=== PATIENT | female | born 1950 | race Caucasian/White ===

== ENCOUNTER 2017-10-05 14:05 | Inpatient (IN) | payer MEDICARE ==
[2017-10-05] VITALS (7 sets, daily range): BP systolic 123–166; BP diastolic 67–89; PULSE 77–104; RESP 18–23; TEMP 99.6–101.7; O2SAT 91–96
[~2017-10-05] VITALS: Ht 157.5 cm; Wt 132.2 kg
[2017-10-05] MEDS ORDERED: LEVOFLOXACIN 750 MG PREMIX INJ 150 ML IV STA (14:28)
--- NOTE | 2017-10-05 14:37 | PD ---
HPI Chief Complaint: Respiratory Symptoms Time Seen by Provider: 14:22 Travel History International Travel<30 days: No Contact w/Intl Traveler<30days: No Traveled to known affect area: No History of Present Illness HPI This is a 66-year-old female who has a history of asthma, congestive heart failure and an artificial valve who presents to the emergency department with increasing shortness of breath over the past 4-5 days, constant, severe associated with brown and yellow sputum and fevers. She was seen at an urgent care prior to coming here and was told she had pneumonia on chest x-ray. She did recently drive here from [place] 5 days ago. She does not use oxygen at home but uses a CPAP machine to sleep at night. She took 1 g of Tylenol 2 hours prior to arriving in the emergency department. PFSH Past Medical History Hx Anticoagulant Therapy: Yes (asa 81mg) Cardiovascular Problems: Yes (htn on meds, pacemaker, hx vtach, heart block) Respiratory: Yes (copd, chf) ?: Not Social History Tobacco Use: No Allergies-Medications (Allergen,Severity, Reaction): Coded Allergies: cefaclor (Verified Allergy, Severe, rash, vomiting, 10/05/17) codeine (Verified Allergy, Intermediate, n/v, 10/05/17) verapamil (Verified Allergy, Intermediate, rash, 10/05/17) Reported Meds & Prescriptions Reported Meds & Active Scripts Active Reported Symbicort Inh (Budesonide/Formoterol Fumarate) 160-4.5 Mcg/Act Aero 2 Puff INH Q12HR Spiriva Handihaler (Tiotropium Inh) 18 Mcg Cap 18 Mcg INH DAILY 1 capsule = 18 mcg Potassium Chloride ER (Potassium Chloride) 10 Meq Cap 10 Meq PO DAILY Paroxetine (Paroxetine HCl) 40 Mg Tab 40 Mg PO DAILY Oxycodone-Acetaminophen 10-325 mg Tab 1 Tab PO Q6H PRN Montelukast (Montelukast Sodium) 10 Mg Tab 10 Mg PO HS Lisinopril 2.5 Mg Tab 2.5 Mg PO DAILY Levothyroxine (Levothyroxine Sodium) 125 Mcg Tab 125 Mcg PO DAILY Isosorbide Mononitrate ER (Isosorbide Mononitrate) 30 Mg Saji 30 Mg PO DAILY Furosemide 40 Mg Tab 40 Mg PO BID Vitamin B-12 (Cyanocobalamin) 1,000 Mcg Tab 1,000 Mcg PO DAILY Clonazepam 1 Mg Tab 1 Mg PO TID Carvedilol 6.25 Mg Tab 6.25 Mg PO BID Aspirin 81 Mg Chew 81 Mg CHEW DAILY Ventolin Hfa 18 GM Inh (Albuterol Sulfate) 90 Mcg/Act Aer 2 Puff INH Q4-6H PRN Review of Systems Except as stated in HPI: all other systems reviewed are Neg Physical Exam Narrative GENERAL: Ill-appearing, morbidly obese SKIN: Focused skin assessment warm and dry. HEAD: Atraumatic. Normocephalic. EYES: Pupils equal and round. No injection or drainage. ENT: Moist mucous membranes NECK: Trachea midline. CARDIOVASCULAR: Harsh systolic murmur RESPIRATORY: Rales in the bilateral lung bases, tachypnea with accessory muscle use GASTROINTESTINAL: Abdomen soft, non-tender, nondistended. MUSCULOSKELETAL: No obvious deformities. NEUROLOGICAL: Awake and alert. No obvious cranial nerve deficits. Moving all extremities. PSYCHIATRIC: Appropriate mood and affect; insight and judgment normal. Data Data Last Documented VS Vital Signs Date Time Temp Pulse Resp B/P (MAP) Pulse Ox O2 Delivery O2 Flow Rate FiO2 10/05/17 15:27 80 18 141/80 (100) 93 Nasal Cannula 2.00 10/05/17 14:15 101.7 Orders Orders Sepsis Workup Initiated (10/05/17 ) Complete Blood Count With Diff (10/05/17 14:28) Comprehensive Metabolic Panel (10/05/17 14:28) Prothrombin Time / Inr (Pt) (10/05/17 14:28) Act Partial Throm Time (Ptt) (10/05/17 14:28) Lactic Acid Sepsis Protocol (10/05/17 14:28) Urinalysis - C+S If Indicated (10/05/17 14:28) Blood Culture (10/05/17 14:28) Sputum Culture And Gram Stain (10/05/17 14:28) Blood Glucose (10/05/17 14:28) Ecg Monitoring (10/05/17 14:28) Iv Access Insert/Monitor (10/05/17 14:28) Oximetry (10/05/17 14:28) Oxygen Administration (10/05/17 14:28) Levofloxacin 750 Mg Premix Inj (Levaquin (10/05/17 14:28) B-Type Natriuretic Peptide (10/05/17 14:34) Methylprednisolone So Succ Inj (Solumedr (10/05/17 14:45) Albuterol-Ipratropium Neb (Duoneb Neb) (10/05/17 14:45) Arterial Blood Gas (Abg) (10/05/17 ) Admit Order (Ed Use Only) (10/05/17 16:09) Influenzae A/B Antigen (10/05/17 16:09) Labs Laboratory Tests Test 10/05/17 14:43 10/05/17 14:48 10/05/17 15:48 White Blood Count 18.2 TH/MM3 Red Blood Count 4.87 MIL/MM3 Hemoglobin 14.5 GM/DL Hematocrit 42.9 % Mean Corpuscular Volume 88.0 FL Mean Corpuscular Hemoglobin 29.7 PG Mean Corpuscular Hemoglobin Concent 33.8 % Red Cell Distribution Width 13.1 % Platelet Count 401 TH/MM3 Mean Platelet Volume 8.0 FL Neutrophils (%) (Auto) 75.5 % Lymphocytes (%) (Auto) 16.6 % Monocytes (%) (Auto) 6.4 % Eosinophils (%) (Auto) 0.7 % Basophils (%) (Auto) 0.8 % Neutrophils # (Auto) 13.8 TH/MM3 Lymphocytes # (Auto) 3.0 TH/MM3 Monocytes # (Auto) 1.2 TH/MM3 Eosinophils # (Auto) 0.1 TH/MM3 Basophils # (Auto) 0.1 TH/MM3 CBC Comment DIFF FINAL Differential Comment Prothrombin Time 10.4 SEC Prothromb Time International Ratio 1.0 RATIO Activated Partial Thromboplast Time 25.5 SEC Blood Urea Nitrogen 14 MG/DL Creatinine 0.93 MG/DL Random Glucose 91 MG/DL Total Protein 7.5 GM/DL Albumin 3.5 GM/DL Calcium Level 8.7 MG/DL Alkaline Phosphatase 134 U/L Aspartate Amino Transf (AST/SGOT) 28 U/L Alanine Aminotransferase (ALT/SGPT) 25 U/L Total Bilirubin 0.2 MG/DL Sodium Level 139 MEQ/L Potassium Level 3.4 MEQ/L Chloride Level 103 MEQ/L Carbon Dioxide Level 26.6 MEQ/L Anion Gap 9 MEQ/L Estimat Glomerular Filtration Rate 60 ML/MIN B-Type Natriuretic Peptide 70 PG/ML Lactic Acid Level 1.7 mmol/L Urine Color YELLOW Urine Turbidity CLEAR Urine pH 7.0 Urine Specific Joaquin LESS/EQUAL 1.005 Urine Protein NEG mg/dL Urine Glucose (UA) NEG mg/dL Urine Ketones NEG mg/dL Urine Occult Blood NEG Urine Nitrite NEG Urine Bilirubin NEG Urine Urobilinogen 0.2 MG/DL Urine Leukocyte Esterase NEG Urine WBC 0-2 /hpf Urine Squamous Epithelial Cells 0-5 /hpf Urine Mucus OCC /lpf Microscopic Urinalysis Comment CATH-CULT NOT IND MDM Medical Decision Making Medical Screen Exam Complete: Yes Emergency Medical Condition: Yes Interpretation(s) Fever, normotensive Leukocytosis 75% neutrophils Mild hypokalemia Lactic acid is normal BNP is normal Urinalysis is negative for infection Chest x-ray from outside hospital demonstrates a right sided pneumonia Differential Diagnosis COPD exacerbation, pneumonia, sepsis, pleural effusion, congestive heart failure Narrative Course This is a 66-year-old female who presents to the emergency department with cough shortness of breath and fever. She has a history of COPD and congestive heart failure. She is placed on a monitor and IV was established. She was found to be hypoxic and is not on oxygen at home. Labs demonstrate a leukocytosis. Chest x-ray from outside urgent care demonstrates pneumonia. Patient was given IV steroids, bronchodilators and IV antibiotics and cultures were obtained. Lactic acid was normal. Patient will be admitted in the setting of sepsis and pneumonia. Given her recent travel history I considered pulmonary embolism but given the presence of consolidation on chest x-ray, fever, leukocytosis and symptoms I think pneumonia is more likely explanation for her symptoms. Physician Communication Physician Communication Discussed with Dr. Barraza Diagnosis Primary Impression: Pneumonia Qualified Codes: J18.9 - Pneumonia, unspecified organism Additional Impression: Sepsis Qualified Codes: A41.9 - Sepsis, unspecified organism Admitting Information Admitting Physician Requests: it Danitza De Oliveira MD Oct 05, 2017 14:37
[2017-10-05] MEDS: RESP: ALBUTEROL 2.5 MG/IPRATROPIUM 0.5 MG NEB (SCH) INH ×3 (14:42→19:25)
[2017-10-05] MEDS ORDERED: methylPREDNISolone SOD SUCC 125 MG/2 ML VIAL IV PUSH ONE (14:45)
[2017-10-05 15:12] LABS: AUTOMATED NEUTROPHIL # 13.8 TH/MM3 (1.8-7.7); BASOPHIL # 0.1 TH/MM3 (0-0.2); BASOPHIL % 0.8 % (0.0-2.0); EOSINOPHIL # 0.1 TH/MM3 (0-0.4); EOSINOPHIL % 0.7 % (0.0-4.0); HEMATOCRIT 42.9 % (35.0-46.0); HEMOGLOBIN 14.5 GM/DL (11.6-15.3); LYMPH % 16.6 % (9.0-44.0); MEAN CORPUSCULAR HEMOGLOBIN 29.7 PG (27.0-34.0); MEAN CORPUSCULAR HGB CONC 33.8 % (32.0-36.0); MONO % 6.4 % (0.0-8.0); MONOCYTE # 1.2 TH/MM3 (0-0.9); NEUT % 75.5 % (16.0-70.0); PLATELET COUNT 401 TH/MM3 (150-450); RED BLOOD COUNT 4.87 MIL/MM3 (4.00-5.30); RED CELL DISTRIBUTION WIDTH 13.1 % (11.6-17.2); WHITE BLOOD COUNT 18.2 TH/MM3 (4.0-11.0)
[2017-10-05 15:24] LABS: CHLORIDE 103 MEQ/L (98-107); SODIUM (NA) 139 MEQ/L (136-145)
[2017-10-05] MEDS ORDERED: MONT10TA4 PO (15:26)
[2017-10-05] MEDS ORDERED: CARV6.252 PO (15:26)
[2017-10-05] MEDS ORDERED: SYMB160A INH (15:26)
[2017-10-05] MEDS ORDERED: PARO40TA2 PO (15:26)
[2017-10-05] MEDS ORDERED: VITA10002 PO (15:26)
[2017-10-05] MEDS ORDERED: POTA10CA PO (15:26)
[2017-10-05] MEDS ORDERED: SPIRCAP INH (15:26)
[2017-10-05] MEDS ORDERED: ASPI-516 CHEW (15:26)
[2017-10-05] MEDS ORDERED: ISOS30TA3 PO (15:26)
[2017-10-05] MEDS ORDERED: OXYC1TAB36 PO (15:26)
[2017-10-05] MEDS ORDERED: CLON1TAB PO (15:26)
[2017-10-05] MEDS ORDERED: VENTAER INH (15:26)
[2017-10-05] MEDS ORDERED: FURO40TA PO (15:26)
[2017-10-05] MEDS ORDERED: LEVO125T4 PO (15:26)
[2017-10-05] MEDS ORDERED: LISI2.5T3 PO (15:26)
[2017-10-05 15:27] LABS: CALCIUM 8.7 MG/DL (8.5-10.1)
[2017-10-05 15:28] LABS: ALBUMIN 3.5 GM/DL (3.4-5.0); BICARBONATE 26.6 MEQ/L (21.0-32.0); BLOOD UREA NITROGEN 14 MG/DL (7-18); GLUCOSE,RANDOM 91 MG/DL (74-106)
[2017-10-05 15:30] LABS: PROTHROMBIN TIME - PATIENT 10.4 SEC (9.8-11.6)
[2017-10-05 15:31] LABS: ALT (GPT) 25 U/L (10-53); AST (GOT) 28 U/L (15-37); CREATININE 0.93 MG/DL (0.50-1.00); GLOMERULAR FILTRATION RATE 60 ML/MIN (>89)
[2017-10-05 15:32] LABS: TOTAL BILIRUBIN ADULT 0.2 MG/DL (0.2-1.0)
[2017-10-05 15:33] LABS: TOTAL PROTEIN 7.5 GM/DL (6.4-8.2)
[2017-10-05 15:34] LABS: ALKALINE PHOSPHATASE 134 U/L (45-117)
[2017-10-05 15:57] LABS: BILIRUBIN, URINE NEG (NEG); BLOOD, URINE NEG (NEG); GLUCOSE,URINE NEG (NEG); KETONE, URINE NEG (NEG); NITRITE,URINE NEG (NEG); URINE COLOR YELLOW (YELLW/STRAW); URINE LEUKOCYTE ESTERASE NEG (NEG)
[2017-10-05 16:11] LABS: MUCUS URINE OCC /lpf (OCC)
[2017-10-05 16:12] LABS: SQUAMOUS EPITHELIAL CELL URINE 0-5 /hpf (0-5); WBC, URINE 0-2 /hpf (0-5)
[2017-10-05] MEDS ORDERED: SODIUM CHLORIDE 0.9% FLUSH 10 ML FLUSH IV FLUSH PRN (16:15)
[2017-10-05] MEDS ORDERED: RESP: ALBUTEROL 2.5 MG/IPRATROPIUM 0.5 MG NEB (PRN) INH (16:15)
--- NOTE | 2017-10-05 16:18 | HHI.HP ---
[facility] Service [facility] Primary Care Physician Non-Staff Admission Diagnosis Pneumonia Diagnoses: (1) Pneumonia (2) Sepsis Chief Complaint: Shortness of breath Travel History International Travel<30 Days: No Contact w/Intl Traveler <30 Da: No Traveled to Known Affected Are: No Sepsis Criteria SIRS Criteria (2 or more): Temp > 100.9 or < 96.8, WBC > 94807, < 4000 or > 10 % bands Sepsis Criteria (SIRS+source): Infect source susp/known History of Present Illness This is a pleasant 66-year-old female patient with a known medical history of CAD, COPD, hypertension, CHF and valve replacement who presented to the ED from urgent care with complaints of worsening shortness of breath and diagnosed pneumonia. Patient and her are in [place] from [place] for vacation. Patient states that her symptoms started on Tuesday beginning with a productive cough with brown colored sputum and worsening shortness of breath especially with exertion. Patient states that over the past 3 weeks she has just felt increasingly fatigued as well as subjective fevers with T-max of 101 today. An x-ray was performed at the urgent care today showing left-sided pneumonia. Patient does follow with a straightener back in [place], was last seen 2 weeks ago and was started on 2 inhalers, Symbicort and Spiriva. She does admit to using a CPAP machine at night for sleep apnea. Does not use O2 at home. It should be noted that patient recently drove here 5 days ago with her from [place]. She states they stopped every 5 hours and got up to walk. Denies any history of blood clots. Does admit to history of valve replacement, not on any anticoagulation, does take a baby aspirin daily. Patient states she was last hospitalized in 2011 for CHF exacerbation but since then her COPD and CHF have been adequately controlled. Review of Systems Constitutional: COMPLAINS OF: Fatigue, DENIES: Fever, Chills Eyes: DENIES: Diplopia Ears, nose, mouth, throat: DENIES: Vertigo Respiratory: COMPLAINS OF: Cough, Sputum production, Shortness of breath Cardiovascular: COMPLAINS OF: Dyspnea on Exertion, DENIES: Chest pain, Palpitations, Lower Extremity Edema Gastrointestinal: DENIES: Abdominal pain, Black stools, Bloody stools, Constipation, Diarrhea, Nausea, Vomiting Musculoskeletal: DENIES: Joint pain Hematologic/lymphatic: DENIES: Bruising Immunologic/allergic: DENIES: Eczema Neurologic: DENIES: Abnormal gait Psychiatric: COMPLAINS OF: Anxiety Except as stated in HPI: all other systems reviewed are Neg Past Family Social History Past Medical History Hypertension History of V. tach and heart block COPD History of CHF Anxiety Depression History of sarcoidosis Past Surgical History Valve replacement Pacemaker placement Cholecystectomy Appendectomy Tubal ligation Rectocele Reported Medications Active Reported Symbicort Inh (Budesonide/Formoterol Fumarate) 160-4.5 Mcg/Act Aero 2 Puff INH Q12HR Spiriva Handihaler (Tiotropium Inh) 18 Mcg Cap 18 Mcg INH DAILY 1 capsule = 18 mcg Potassium Chloride ER (Potassium Chloride) 10 Meq Cap 10 Meq PO DAILY Paroxetine (Paroxetine HCl) 40 Mg Tab 40 Mg PO DAILY Oxycodone-Acetaminophen 10-325 mg Tab 1 Tab PO Q6H PRN Montelukast (Montelukast Sodium) 10 Mg Tab 10 Mg PO HS Lisinopril 2.5 Mg Tab 2.5 Mg PO DAILY Levothyroxine (Levothyroxine Sodium) 125 Mcg Tab 125 Mcg PO DAILY Isosorbide Mononitrate ER (Isosorbide Mononitrate) 30 Mg Saji 30 Mg PO DAILY Furosemide 40 Mg Tab 40 Mg PO BID Vitamin B-12 (Cyanocobalamin) 1,000 Mcg Tab 1,000 Mcg PO DAILY Clonazepam 1 Mg Tab 1 Mg PO TID Carvedilol 6.25 Mg Tab 6.25 Mg PO BID Aspirin 81 Mg Chew 81 Mg CHEW DAILY Ventolin Hfa 18 GM Inh (Albuterol Sulfate) 90 Mcg/Act Aer 2 Puff INH Q4-6H PRN Allergies: Coded Allergies: cefaclor (Verified Allergy, Severe, rash, vomiting, 10/05/17) codeine (Verified Allergy, Intermediate, n/v, 10/05/17) verapamil (Verified Allergy, Intermediate, rash, 10/05/17) Active Ordered Medications Current Medications Medications (Trade) Dose Ordered Sig/Bernie Route Start Time Stop Time Status Last Admin (NS Flush) 2 ml UNSCH PRN IV FLUSH 10/05/17 16:15 UNV (NS Flush) 2 ml BID IV FLUSH 10/05/17 21:00 UNV Levofloxacin/ Dextrose 150 ml @ 100 mls/hr Q24H IV 10/05/17 16:15 UNV (Duoneb Neb) 1 ampule Q6HR WHILE AWAKE NEB INH 10/05/17 20:00 UNV (Duoneb Neb) 1 ampule Q4HR NEB PRN INH 10/05/17 16:15 UNV (SoluMEDROL INJ) 40 mg Q12H IV PUSH 10/05/17 16:15 UNV (Heparin Inj) 5,000 units Q8H SQ 10/05/17 16:15 UNV (Aspirin Chew) 81 mg DAILY CHEW 10/06/17 09:00 UNV (Symbicort 160-4.5 Mcg Inh) 2 puff Q12HR INH 10/05/17 21:00 UNV (Coreg) 6.25 mg BID PO 10/05/17 21:00 UNV (KlonoPIN) 1 mg TID PO 10/05/17 18:00 UNV (Lasix) 40 mg BID PO 10/05/17 21:00 UNV (Imdur) 30 mg DAILY PO 10/06/17 09:00 UNV (Synthroid) 125 mcg DAILY PO 10/06/17 09:00 UNV (Singulair) 10 mg HS PO 10/05/17 21:00 UNV (Percocet 10-325 Mg) 1 tab Q6H PRN PO 10/05/17 16:15 UNV (Paxil) 40 mg DAILY PO 10/06/17 09:00 UNV (Spiriva Inh) 18 mcg DAILY INH 10/06/17 09:00 UNV Non-Formulary Medication 2.5 mg DAILY PO 10/06/17 09:00 UNV Family History Paternal medical history significant for lung cancer and heart attack. Mother had a history of CHF. Social History Denies any tobacco, alcohol or illicit drug use. Physical Exam Vital Signs Vital Signs Date Time Temp Pulse Resp B/P (MAP) Pulse Ox O2 Delivery O2 Flow Rate FiO2 10/05/17 15:27 80 18 141/80 (100) 93 Nasal Cannula 2.00 10/05/17 15:07 91 Nasal Cannula 2.00 10/05/17 15:07 20 92 Room Air 10/05/17 15:07 18 91 Room Air 10/05/17 14:15 101.7 77 18 123/67 (85) 95 Physical Exam GENERAL: This is a well-developed obese female patient, with apparent shortness of breath and accessory muscle use on supplemental O2. SKIN: No rashes, ecchymoses or lesions. Cool and dry. HEAD: Atraumatic. Normocephalic. EYES: Pupils equal round and reactive. Extraocular motions intact. No scleral icterus. No injection or drainage. ENT: Nose without bleeding. Throat without erythema, tonsillar hypertrophy or exudate. Uvula midline. Airway patent. NECK: Trachea midline. No JVD or lymphadenopathy. Supple. CARDIOVASCULAR: Regular rate and rhythm. S1 and S2 present. RESPIRATORY: Diminished breath sounds on anterior aspect of chest due to body habitus. Posterior breath sounds with rhonchi throughout. Breath sounds equal bilaterally. GASTROINTESTINAL: Abdomen soft, non-tender, nondistended. Round. No guarding. MUSCULOSKELETAL: Extremities without clubbing, cyanosis, or edema. No joint tenderness, effusion, or edema noted. No calf tenderness. Negative Homans sign bilaterally. NEUROLOGICAL: Awake and alert. Cranial nerves II through XII intact. Motor and sensory grossly within normal limits. Five out of 5 muscle strength in all muscle groups. Normal speech. Laboratory Laboratory Tests Test 10/05/17 14:43 10/05/17 14:48 10/05/17 15:48 White Blood Count 18.2 Red Blood Count 4.87 Hemoglobin 14.5 Hematocrit 42.9 Mean Corpuscular Volume 88.0 Mean Corpuscular Hemoglobin 29.7 Mean Corpuscular Hemoglobin Concent 33.8 Red Cell Distribution Width 13.1 Platelet Count 401 Mean Platelet Volume 8.0 Neutrophils (%) (Auto) 75.5 Lymphocytes (%) (Auto) 16.6 Monocytes (%) (Auto) 6.4 Eosinophils (%) (Auto) 0.7 Basophils (%) (Auto) 0.8 Neutrophils # (Auto) 13.8 Lymphocytes # (Auto) 3.0 Monocytes # (Auto) 1.2 Eosinophils # (Auto) 0.1 Basophils # (Auto) 0.1 CBC Comment DIFF FINAL Differential Comment Prothrombin Time 10.4 Prothromb Time International Ratio 1.0 Activated Partial Thromboplast Time 25.5 Blood Urea Nitrogen 14 Creatinine 0.93 Random Glucose 91 Total Protein 7.5 Albumin 3.5 Calcium Level 8.7 Alkaline Phosphatase 134 Aspartate Amino Transf (AST/SGOT) 28 Alanine Aminotransferase (ALT/SGPT) 25 Total Bilirubin 0.2 Sodium Level 139 Potassium Level 3.4 Chloride Level 103 Carbon Dioxide Level 26.6 Anion Gap 9 Estimat Glomerular Filtration Rate 60 B-Type Natriuretic Peptide 70 Lactic Acid Level 1.7 Urine Color YELLOW Urine Turbidity CLEAR Urine pH 7.0 Urine Specific [place] LESS/EQUAL 1.005 Urine Protein NEG Urine Glucose (UA) NEG Urine Ketones NEG Urine Occult Blood NEG Urine Nitrite NEG Urine Bilirubin NEG Urine Urobilinogen 0.2 Urine Leukocyte Esterase NEG Urine WBC 0-2 Urine Squamous Epithelial Cells 0-5 Urine Mucus OCC Microscopic Urinalysis Comment CATH-CULT NOT IND Date/Time Source Procedure Growth Status 10/05/17 14:48 Blood Peripheral Aerobic Blood Culture Pending Received 10/05/17 14:48 Blood Peripheral Anaerobic Blood Culture Pending Received 10/05/17 15:12 Sputum Expectorated Sputum Gram Stain Pending Received 10/05/17 15:12 Sputum Expectorated Sputum Sputum Culture Pending Received Result Diagram: 10/05/17 1443 10/05/17 1443 Septic Shock Reassessment Septic shock perfusion: reassessment completed Caprini VTE Risk Assessment Caprini VTE Risk Assessment: Mod/High Risk (score >= 2) Caprini Risk Assessment Model Point Value = 1 Point Value = 2 Point Value = 3 Point Value = 5 Age 41-60 Minor surgery BMI > 25 kg/m2 Swollen legs Varicose veins or History of unexplained or recurrent spontaneous Oral contraceptives or hormone replacement Sepsis (< 1 month) Serious lung disease, including pneumonia (< 1 month) Abnormal pulmonary function Acute myocardial infarction Congestive heart failure (< 1 month) History of inflammatory bowel disease Medical patient at bed rest Age 61-74 Arthroscopic surgery Major open surgery (> 45 min) Laparoscopic surgery (> 45 min) Malignancy Confined to bed (> 72 hours) Immobilizing plaster cast Central venous access Age >= 75 History of VTE Family history of VTE Factor V Leiden Prothrombin [id number] Lupus anticoagulant Anticardiolipin antibodies Elevated serum homocysteine Heparin-induced thrombocytopenia Other congenital or acquired thrombophilia Stroke (< 1 month) Elective arthroplasty Hip, pelvis, or leg fracture Acute spinal cord injury (< 1 month) Prophylaxis Regimen Total Risk Factor Score Risk Level Prophylaxis Regimen 0-1 Low Early ambulation 2 Moderate Order ONE of the following: *Sequential Compression Device (SCD) *Heparin 5000 units SQ BID 3-4 Higher Order ONE of the following medications: *Heparin 5000 units SQ TID *Enoxaparin/Lovenox 40 mg SQ daily (WT < 150 kg, CrCl > 30 mL/min) *Enoxaparin/Lovenox 30 mg SQ daily (WT < 150 kg, CrCl > 10-29 mL/min) *Enoxaparin/Lovenox 30 mg SQ BID (WT < 150 kg, CrCl > 30 mL/min) AND/OR *Sequential Compression Device (SCD) 5 or more Highest Order ONE of the following medications: *Heparin 5000 units SQ TID (Preferred with Epidurals) *Enoxaparin/Lovenox 40 mg SQ daily (WT < 150 kg, CrCl > 30 mL/min) *Enoxaparin/Lovenox 30 mg SQ daily (WT < 150 kg, CrCl > 10-29 mL/min) *Enoxaparin/Lovenox 30 mg SQ BID (WT < 150 kg, CrCl > 30 mL/min) AND *Sequential Compression Device (SCD) Assessment and Plan Problem List: (1) Sepsis ICD Code: A41.9 - Sepsis, unspecified organism (2) Pneumonia ICD Code: J18.9 - Pneumonia, unspecified organism Assessment and Plan This is a pleasant 66-year-old female patient with a known medical history of CAD, COPD, hypertension, CHF and valve replacement who presented to the ED from urgent care with complaints of worsening shortness of breath and diagnosed pneumonia. Sepsis Community-acquired pneumonia with acute respiratory failure and hypoxia requiring supplement O2 Rule out possible pulmonary emboli secondary to recent ravel - Meet sepsis criteria with fever, 101.7, leukocytosis with white blood cell 18.2 and mild bandemia, source pneumonia. Lactic acid 1.7. - Presented with productive cough and worsening shortness of breath. - Urgent care x-ray showing left sided pneumonia. Will obtain a CTA to rule out PE due to patient's increased risk factor of recent travel from [place]. Follow. - Sputum culture and blood cultures pending. Follow. UA negative. - Started on Levaquin, continue daily. - Duonebs scheduled and as needed. Continue home inhalers. - Continue IV steroids. - Continue home BIPAP HS. Patient to bring machine from home. - Supplemental O2 to keep sats >92%. ABG reviewed and stable at this time. - Follow CBC in am. COPD not in exacerbation - Continue treatment plan as above. Congestive heart failure unspecified type, not in exacerbation History of cardiac valve replacement - BNP 70. - Continue home Lasix 40 mg PO BID. - Mild hypokalemia, K 3.4. Replace and monitor. - Monitor intake and output closely. - Follows with plastic and reconstructive surgeon in [place], where patient lives. Last seen 2 weeks ago and manages CHF with recent ECHO. Hypertension, chronic: Continue home medications. Monitor BP trends. Hypothyroidism, chronic: Continue home Synthroid. Chronic anxiety and depression: Continue home medications. Chronic back pain: Continue home medications. DVT prophylaxis: SCDs. Heparin. Code Status Alternative code: ACLS drugs only. Discussed Condition With Patient and . Physician Certification 2 Midnight Certification Type: Admission for Inpatient Services Order for Inpatient Services The services are ordered in accordance with Medicare regulations or non- Medicare payer requirements, as applicable. In the case of services not specified as inpatient-only, they are appropriately provided as inpatient services in accordance with the 2-midnight benchmark. Estimated LOS (days): 3 3 days is the estimated time the patient will need to remain in the hospital, assuming treatment plan goals are met and no additional complications. Post-Hospital Plan: Not yet determined Audrey Shea Oct 05, 2017 16:18
[2017-10-05] MEDS ORDERED: PILL SPLITTER OTHER PRN (17:00)
[2017-10-05] MEDS ORDERED: POTASSIUM CHLORIDE 20 MEQ CONTROLLED RELEASE TAB PO ONE (17:00)
[2017-10-05] MEDS ORDERED: IOHEXOL 350 MG/ML 10 ML VIAL (for RAD DIAG) IVCONTRAST ONE (17:35)
--- NOTE | 2017-10-05 17:42 | RADRPT ---
EXAM DATE: 10/05/2017 5:36 PM EDT AGE/SEX: 66 years / Female INDICATIONS: Shortness of breath. CLINICAL DATA: This is the patient's initial encounter. Patient reports that signs and symptoms have been present for 1 day and indicates a pain score of 0/10. MEDICAL/SURGICAL HISTORY: Chronic obstructive pulmonary disease. Hypertension. Cardiovascular dis ease. Pacemaker. Aortic valve replacement. RADIATION DOSE: 21.64 CTDI (mGy) COMPARISON: No prior exams available for comparison. TECHNIQUE: Volumetric scanning was performed using a multi-row detector CT scanner during bolus infu casey of 65 ml Omnipaque 350 (iohexol) nonionic water-soluble contrast as a single exam dose. The ebony a was post processed with a variety of visualization algorithms including full volume maximum intensi ty projection and sliding thin slab reformation. Using automated exposure control and adjustment of the mA and/or kV according to patient size, radiation dose was kept as low as reasonably achievable t o obtain optimal diagnostic quality images. FINDINGS: Moderate parenchymal consolidation is present in the right upper lobe. Left lung is clear. There is n o pleural effusion. Percutaneous aortic valve is noted. There is no evidence for central pulmonary emboli. There is no axillary adenopathy. There is no mediastinal adenopathy. There is no pericardial effusion . Minimal reflux of contrast into the hepatic veins. CONCLUSION: 1. Inflammatory changes right upper lobe in this patient who has had a percutaneous aortic valve re placement. 2. There is no central pulmonary emboli 3. Minimal reflux of contrast into the hepatic veins. This can be seen with right heart failure. Electronically signed by: Hilton Drake MD 10/05/2017 5:41 PM EDT
[2017-10-05] MEDS: HEPARIN SODIUM - SQ 10,000 UNITS/ML VIAL SQ SCH ×2 (18:38→21:57)
[2017-10-05] MEDS: FUROSEMIDE 40 MG TAB PO SCH (18:44)
[2017-10-05] MEDS ORDERED: REME45TA PO (19:58)
[2017-10-05] MEDS: BUDESONIDE-FORMOTEROL 160/4.5 MCG INHALER INH SCH (20:52)
[2017-10-05] MEDS: clonazePAM 1 MG TAB PO SCH (20:52)
[2017-10-05] MEDS: CARVEDILOL 6.25 MG TAB PO SCH (20:52)
[2017-10-05] MEDS: methylPREDNISolone SOD SUCC 40 MG/1 ML VIAL IV PUSH SCH (20:52)
[2017-10-05] MEDS: SODIUM CHLORIDE 0.9% FLUSH 10 ML FLUSH IV FLUSH SCH (20:52)
[2017-10-05] MEDS: MIRTAZAPINE 15 MG TAB PO SCH (20:52)
[2017-10-05] MEDS: MONTELUKAST SODIUM 10 MG TAB PO SCH (20:57)
[2017-10-05] MEDS: oxyCODONE/ACETAMINOPHEN 10 MG/325 MG TAB PO PRN (22:01)
[2017-10-06] VITALS (12 sets, daily range): BP systolic 99–148; BP diastolic 49–78; PULSE 63–88; RESP 17–32; TEMP 98–98.6; O2SAT 92–97
[2017-10-06] MEDS: oxyCODONE/ACETAMINOPHEN 10 MG/325 MG TAB PO PRN ×4 (04:46→22:57)
[2017-10-06 05:43] LABS: AUTOMATED NEUTROPHIL # 15.6 TH/MM3 (1.8-7.7); BASOPHIL % 0.2 % (0.0-2.0); EOSINOPHIL % 0.1 % (0.0-4.0); HEMATOCRIT 40.7 % (35.0-46.0); HEMOGLOBIN 14.1 GM/DL (11.6-15.3); LYMPH % 12.2 % (9.0-44.0); LYMPHOCYTE # 2.2 TH/MM3 (1.0-4.8); MEAN CELL VOLUME 85.7 FL (80.0-100.0); MEAN CORPUSCULAR HEMOGLOBIN 29.7 PG (27.0-34.0); MEAN CORPUSCULAR HGB CONC 34.6 % (32.0-36.0); MEAN PLATELET VOLUME 8.4 FL (7.0-11.0); MONO % 2.1 % (0.0-8.0); MONOCYTE # 0.4 TH/MM3 (0-0.9); NEUT % 85.4 % (16.0-70.0); PLATELET COUNT 410 TH/MM3 (150-450); RED BLOOD COUNT 4.76 MIL/MM3 (4.00-5.30); RED CELL DISTRIBUTION WIDTH 13.3 % (11.6-17.2); WHITE BLOOD COUNT 18.2 TH/MM3 (4.0-11.0)
[2017-10-06] MEDS: LEVOTHYROXINE SODIUM 125 MCG TAB PO SCH (05:46)
[2017-10-06] MEDS: HEPARIN SODIUM - SQ 10,000 UNITS/ML VIAL SQ SCH ×3 (05:47→21:57)
[2017-10-06 06:16] LABS: BICARBONATE 27.2 MEQ/L (21.0-32.0); CALCIUM 8.4 MG/DL (8.5-10.1)
[2017-10-06 06:20] LABS: CREATININE 0.74 MG/DL (0.50-1.00)
[2017-10-06] MEDS ORDERED: POTASSIUM CHLORIDE 20 MEQ CONTROLLED RELEASE TAB PO ONE (07:45)
[2017-10-06] MEDS: RESP: ALBUTEROL 2.5 MG/IPRATROPIUM 0.5 MG NEB (SCH) INH ×3 (08:00→19:18)
--- NOTE | 2017-10-06 08:53 | HHI.PR ---
Subjective Remarks Patient seen and evaluated in follow-up for respiratory insufficiency secondary to pneumonia. Feels better today. Breathing is more regular. Patient still coughing. Care plan discussed with CUT OUT OPERATOR. CT results discussed with patient and CUT OUT OPERATOR Objective Vitals Vital Signs Date Time Temp Pulse Resp B/P (MAP) Pulse Ox O2 Delivery O2 Flow Rate FiO2 10/06/17 08:00 98.1 66 18 146/66 (92) 93 10/06/17 07:23 97 Nasal Cannula 2.00 10/06/17 05:46 20 10/06/17 04:00 98.0 78 20 148/75 (99) 93 10/06/17 00:00 98.6 80 17 137/78 (97) 92 10/05/17 20:00 99.6 104 23 166/82 (110) 91 10/05/17 20:00 99.6 103 20 166/82 (110) 95 10/05/17 19:25 95 Nasal Cannula 2.50 10/05/17 19:15 10/05/17 19:00 94 Nasal Cannula 2.00 10/05/17 17:49 97 18 166/89 (114) 94 Nasal Cannula 2.00 10/05/17 16:24 96 Nasal Cannula 2.00 10/05/17 15:27 80 18 141/80 (100) 93 Nasal Cannula 2.00 10/05/17 15:07 91 Nasal Cannula 2.00 10/05/17 15:07 20 92 Room Air 10/05/17 15:07 18 91 Room Air 10/05/17 14:15 101.7 77 18 123/67 (85) 95 I/O 10/05/17 10/05/17 10/05/17 10/06/17 10/06/17 10/06/17 07:00 15:00 23:00 07:00 15:00 23:00 Intake Total 150 ml 360 ml Balance 150 ml 360 ml Intake Oral 0 ml 360 ml IV Total 150 ml # Voids 5 # Bowel Movements 0 Result Diagram: 10/06/17 0405 10/06/17 [address] Angiography 10/05/17 0000 Signed Impressions: CONCLUSION: 1. Inflammatory changes right upper lobe in this patient who has had a percut aneous aortic valve replacement. 2. There is no central pulmonary emboli 3. Minimal reflux of contrast into the hepatic veins. This can be seen with ri t heart failure. Objective Remarks GENERAL: This is a well-nourished, well-developed patient, coughing CARDIOVASCULAR: Intermittently paced but otherwise regular rate and rhythm without murmurs, gallops, or rubs. RESPIRATORY: Scattered wheezes with decreased breath sounds GASTROINTESTINAL: Abdomen soft, non-tender, nondistended. Normal active bowel sounds MUSCULOSKELETAL: Extremities without clubbing, cyanosis, or edema. NEURO: Alert & Oriented x4 to person, place, time, situation. Moves all ext x4 A/P Problem List: (1) Sepsis ICD Code: A41.9 - Sepsis, unspecified organism Plan: Community-acquired pneumonia with acute respiratory failure and hypoxia requiring supplement O2 Fever better, still with leukocytosis CT of the chest shows pneumonia with out any evidence of pulmonary embolism Continue Levaquin Bronchodilators and home CPAP (2) Pneumonia ICD Code: J18.9 - Pneumonia, unspecified organism Plan: Continue Levaquin (3) COPD (chronic obstructive pulmonary disease) ICD Code: J44.9 - Chronic obstructive pulmonary disease, unspecified Plan: Continue IV steroids Bronchodilators (4) Hypokalemia ICD Code: E87.6 - Hypokalemia Plan: Replace and follow trend (5) Pacemaker ICD Code: Z95.0 - Presence of cardiac pacemaker Plan: Patient follows up in [place] No new events on telemetry, occasional pacemaker spikes Patient with artificial valve Continue Coreg, lisinopril, aspirin and Lasix Assessment and Plan This is a pleasant 66-year-old female patient with a known medical history of CAD, COPD, hypertension, CHF and valve replacement who presented to the ED from urgent care with complaints of worsening shortness of breath and diagnosed pneumonia. Sepsis Community-acquired pneumonia with acute respiratory failure and hypoxia requiring supplement O2 Rule out possible pulmonary emboli secondary to recent ravel - Meet sepsis criteria with fever, 101.7, leukocytosis with white blood cell 18.2 and mild bandemia, source pneumonia. Lactic acid 1.7. - Presented with productive cough and worsening shortness of breath. - Urgent care x-ray showing left sided pneumonia. Will obtain a CTA to rule out PE due to patient's increased risk factor of recent travel from [place]. Follow. - Sputum culture and blood cultures pending. Follow. UA negative. - Started on Levaquin, continue daily. - Duonebs scheduled and as needed. Continue home inhalers. - Continue IV steroids. - Continue home BIPAP HS. Patient to bring machine from home. - Supplemental O2 to keep sats >92%. ABG reviewed and stable at this time. - Follow CBC in am. COPD not in exacerbation - Continue treatment plan as above. Congestive heart failure unspecified type, not in exacerbation History of cardiac valve replacement - BNP 70. - Continue home Lasix 40 mg PO BID. - Mild hypokalemia, K 3.4. Replace and monitor. - Monitor intake and output closely. - Follows with optimization specialist in [place], where patient lives. Last seen 2 weeks ago and manages CHF with recent ECHO. Hypertension, chronic: Continue home medications. Monitor BP trends. Hypothyroidism, chronic: Continue home Synthroid. Chronic anxiety and depression: Continue home medications. Chronic back pain: Continue home medications. Discharge Planning Discharge home 2-3 days pending progress Problem Qualifiers (1) Sepsis: Qualified Codes: A41.9 - Sepsis, unspecified organism (2) Pneumonia: Qualified Codes: J18.9 - Pneumonia, unspecified organism Charo Barraza MD Oct 06, 2017 08:53
[2017-10-06] MEDS: BUDESONIDE-FORMOTEROL 160/4.5 MCG INHALER INH SCH ×2 (10:30→21:56)
[2017-10-06] MEDS: TIOTROPIUM BROMIDE 18 MCG INH INH SCH (10:31)
[2017-10-06] MEDS: CARVEDILOL 6.25 MG TAB PO SCH ×2 (10:33→21:56)
[2017-10-06] MEDS: LISINOPRIL 5 MG TAB PO SCH (10:35)
[2017-10-06] MEDS: ASPIRIN 81 MG CHEW TAB CHEW SCH (10:37)
[2017-10-06] MEDS: methylPREDNISolone SOD SUCC 40 MG/1 ML VIAL IV PUSH SCH ×2 (10:37→21:56)
[2017-10-06] MEDS: SODIUM CHLORIDE 0.9% FLUSH 10 ML FLUSH IV FLUSH SCH ×2 (10:37→21:56)
[2017-10-06] MEDS: clonazePAM 1 MG TAB PO SCH ×3 (10:37→18:19)
[2017-10-06] MEDS: PARoxetine HCL 20 MG TAB PO SCH (10:38)
[2017-10-06] MEDS: ISOSORBIDE MONONITRATE 30 MG CR TAB (IMDUR) PO SCH (10:41)
[2017-10-06] MEDS: FUROSEMIDE 40 MG TAB PO SCH ×2 (10:41→18:19)
[2017-10-06] MEDS ORDERED: LEVOFLOXACIN 750 MG PREMIX INJ 150 ML IV SCH (15:00)
[2017-10-06] MEDS: MONTELUKAST SODIUM 10 MG TAB PO SCH (21:55)
[2017-10-06] MEDS: MIRTAZAPINE 15 MG TAB PO SCH (21:56)
[2017-10-07 02:11] VITALS: BP 135/74; PULSE 70; RESP 22; O2SAT 97
[2017-10-07 05:00] VITALS: BP 145/71; PULSE 75; RESP 22; TEMP 98.5; O2SAT 94
[2017-10-07 05:13] LABS: BICARBONATE 26.8 MEQ/L (21.0-32.0); CALCIUM 8.2 MG/DL (8.5-10.1)
[2017-10-07 05:17] LABS: CREATININE 0.88 MG/DL (0.50-1.00)
[2017-10-07 05:18] LABS: AUTOMATED NEUTROPHIL # 14.8 TH/MM3 (1.8-7.7); BASOPHIL % 0.2 % (0.0-2.0); HEMATOCRIT 38.9 % (35.0-46.0); HEMOGLOBIN 13.2 GM/DL (11.6-15.3); LYMPH % 10.5 % (9.0-44.0); LYMPHOCYTE # 1.8 TH/MM3 (1.0-4.8); MEAN CELL VOLUME 88.6 FL (80.0-100.0); MEAN CORPUSCULAR HGB CONC 33.8 % (32.0-36.0); MEAN PLATELET VOLUME 8.4 FL (7.0-11.0); MONO % 2.8 % (0.0-8.0); MONOCYTE # 0.5 TH/MM3 (0-0.9); NEUT % 86.5 % (16.0-70.0); PLATELET COUNT 368 TH/MM3 (150-450); RED BLOOD COUNT 4.39 MIL/MM3 (4.00-5.30); RED CELL DISTRIBUTION WIDTH 13.3 % (11.6-17.2); WHITE BLOOD COUNT 17.1 TH/MM3 (4.0-11.0)
[2017-10-07] MEDS: HEPARIN SODIUM - SQ 10,000 UNITS/ML VIAL SQ SCH (05:24)
[2017-10-07] MEDS: LEVOTHYROXINE SODIUM 125 MCG TAB PO SCH (05:24)
[2017-10-07] MEDS: oxyCODONE/ACETAMINOPHEN 10 MG/325 MG TAB PO PRN (05:27)
[2017-10-07 07:00] VITALS: PULSE 70
[2017-10-07 07:22] VITALS: O2SAT 96
[2017-10-07] MEDS: RESP: ALBUTEROL 2.5 MG/IPRATROPIUM 0.5 MG NEB (SCH) INH (07:22)
[2017-10-07 08:00] VITALS: BP 189/97; PULSE 39; RESP 45; TEMP 98; O2SAT 96
[2017-10-07] MEDS: clonazePAM 1 MG TAB PO SCH (08:00)
[2017-10-07] MEDS: PARoxetine HCL 20 MG TAB PO SCH (08:00)
[2017-10-07] MEDS: ASPIRIN 81 MG CHEW TAB CHEW SCH (08:03)
[2017-10-07] MEDS: TIOTROPIUM BROMIDE 18 MCG INH INH SCH (08:03)
[2017-10-07] MEDS: BUDESONIDE-FORMOTEROL 160/4.5 MCG INHALER INH SCH (08:03)
[2017-10-07] MEDS: ISOSORBIDE MONONITRATE 30 MG CR TAB (IMDUR) PO SCH (08:05)
[2017-10-07] MEDS: methylPREDNISolone SOD SUCC 40 MG/1 ML VIAL IV PUSH SCH (08:05)
[2017-10-07] MEDS: SODIUM CHLORIDE 0.9% FLUSH 10 ML FLUSH IV FLUSH SCH (08:05)
[2017-10-07] MEDS: LISINOPRIL 5 MG TAB PO SCH (08:05)
[2017-10-07] MEDS: CARVEDILOL 6.25 MG TAB PO SCH (08:05)
[2017-10-07 09:25] VITALS: BP 119/59; PULSE 78; RESP 19; TEMP 98.8; O2SAT 95
[2017-10-07] MEDS ORDERED: LEVA750T9 PO (09:28)
[2017-10-07] MEDS ORDERED: PRED10PA PO (09:28)
--- NOTE | 2017-10-07 09:29 | HHI.DCPOC ---
Discharge Care Plan Diagnosis: (1) COPD (chronic obstructive pulmonary disease) (2) Pneumonia Your Health Problems Are: Anxiety Goals to Promote Your Health * To prevent worsening of your condition and complications * To maintain your health at the optimal level Directions to Meet Your Goals Take your medications as prescribed Follow your dietary instruction Follow activity as directed Keep your appointments as scheduled Take your immunizations and boosters as scheduled If your symptoms worsen call your PCP, if no PCP go to Urgent Care Center or Emergency Room Smoking is Dangerous to Your Health. Avoid second hand smoke Call the 24-hour hour crisis hotline for domestic abuse at Charo Barraza MD Oct 07, 2017 09:29
[2017-10-07] MEDS ORDERED: POLYETHYLENE GLYCOL 17 GM PKG PO SCH (09:30)
[2017-10-07] MEDS ORDERED: clonazePAM 0.5 MG TAB PO ONE (09:30)
--- NOTE | 2017-10-07 09:32 | HHI.DS ---
Discharge Summary Admission Date Oct 05, 2017 at 16:10 Discharge Date: Oct 07, 2017 Admitting Diagnosis Pneumonia (1) Sepsis ICD Code: A41.9 - Sepsis, unspecified organism (2) Pneumonia ICD Code: J18.9 - Pneumonia, unspecified organism (3) COPD (chronic obstructive pulmonary disease) ICD Code: J44.9 - Chronic obstructive pulmonary disease, unspecified (4) Hypokalemia ICD Code: E87.6 - Hypokalemia (5) Pacemaker ICD Code: Z95.0 - Presence of cardiac pacemaker Procedures None Brief History - From Admission This is a pleasant 66-year-old female patient with a known medical history of CAD, COPD, hypertension, CHF and valve replacement who presented to the ED from urgent care with complaints of worsening shortness of breath and diagnosed pneumonia. Patient and her are in [place] from [place] for vacation. Patient states that her symptoms started on Tuesday beginning with a productive cough with brown colored sputum and worsening shortness of breath especially with exertion. Patient states that over the past 3 weeks she has just felt increasingly fatigued as well as subjective fevers with T-max of 101 today. An x-ray was performed at the urgent care today showing left-sided pneumonia. Patient does follow with a business technology teacher back in [place], was last seen 2 weeks ago and was started on 2 inhalers, Symbicort and Spiriva. She does admit to using a CPAP machine at night for sleep apnea. Does not use O2 at home. It should be noted that patient recently drove here 5 days ago with her from [place]. She states they stopped every 5 hours and got up to walk. Denies any history of blood clots. Does admit to history of valve replacement, not on any anticoagulation, does take a baby aspirin daily. Patient states she was last hospitalized in 2011 for CHF exacerbation but since then her COPD and CHF have been adequately controlled. CBC/BMP: 10/07/17 0410 10/07/17 0410 Significant Findings Laboratory Tests Test 10/05/17 14:43 10/05/17 14:48 10/05/17 15:48 10/05/17 16:15 White Blood Count 18.2 TH/MM3 (4.0-11.0) Neutrophils (%) (Auto) 75.5 % (16.0-70.0) Neutrophils # (Auto) 13.8 TH/MM3 (1.8-7.7) Monocytes # (Auto) 1.2 TH/MM3 (0-0.9) Alkaline Phosphatase 134 U/L (45-117) Potassium Level 3.4 MEQ/L (3.5-5.1) Estimat Glomerular Filtration Rate 60 ML/MIN (>89) Blood Gas Base Excess 3.2 mmol/L (-2-2) Arterial Blood pH 7.50 (7.380-7.420) Arterial Blood Partial Pressure CO2 34 mmHG (38-42) Test 10/06/17 04:05 10/07/17 04:10 White Blood Count 18.2 TH/MM3 (4.0-11.0) 17.1 TH/MM3 (4.0-11.0) Neutrophils (%) (Auto) 85.4 % (16.0-70.0) 86.5 % (16.0-70.0) Neutrophils # (Auto) 15.6 TH/MM3 (1.8-7.7) 14.8 TH/MM3 (1.8-7.7) Random Glucose 169 MG/DL (74-106) 261 MG/DL (74-106) Calcium Level 8.4 MG/DL (8.5-10.1) 8.2 MG/DL (8.5-10.1) Potassium Level 3.4 MEQ/L (3.5-5.1) Estimat Glomerular Filtration Rate 78 ML/MIN (>89) 64 ML/MIN (>89) PE at Discharge GENERAL: This is a well-nourished, well-developed patient, coughing CARDIOVASCULAR: Intermittently paced but otherwise regular rate and rhythm without murmurs, gallops, or rubs. RESPIRATORY: Scattered wheezes with decreased breath sounds GASTROINTESTINAL: Abdomen soft, non-tender, nondistended. Normal active bowel sounds MUSCULOSKELETAL: Extremities without clubbing, cyanosis, or edema. NEURO: Alert & Oriented x4 to person, place, time, situation. Moves all ext x4 Pt update on day of discharge Patient complained of quite a bit of anxiety today. She says her Klonopin was not given adequate times and given her recent in her family she is quite anxious. She feels better respiratory flores and would like to go home. Care plan discussed with VEGETABLE SPECKER. Patient also complained of constipation she takes MiraLAX for Hospital Course This patient is a 66-year-old female with history of COPD and obstructive sleep apnea. She did come in with some evidence of early sepsis secondary to pneumonia and was treated with antibiotics. Patient did improve with treatment of both COPD and pneumonia. She has some hyperglycemia secondary to the steroids. Patient's anxiety was treated with Klonopin Pt Condition on Discharge: Good Discharge Disposition: Discharge Home Discharge Time: <= 30 minutes Discharge Instructions DIET: Follow Instructions for: As Tolerated, No Restrictions Activities you can perform: Regular-No Restrictions New Medications: Levofloxacin (Levaquin) 750 Mg Tablet 750 MG PO DAILY for Infection, #5 TAB 0 Refills Prednisone (21) 10 mg tab Dose Pack (Prednisone (21) 10 mg tab Dose Pack) 10 Mg Pack 10 MG PO DIRECTED for Inflammation, #1 DSPK 0 Refills Continued Medications: Albuterol 18 GM Inh (Ventolin Hfa 18 GM Inh) 90 Mcg/Act Aer 2 PUFF INH Q4-6H PRN for SHORTNESS OF BREATH, #1 INHALER 0 Refills Aspirin (Aspirin) 81 Mg Chew 81 MG CHEW DAILY, TAB 0 Refills Budesonide-Formoterol Inh (Symbicort Inh) 160-4.5 Mcg/Act Aero 2 PUFF INH Q12HR, #1 INHALER 0 Refills Carvedilol (Carvedilol) 6.25 Mg Tab 6.25 MG PO BID, #60 TAB 0 Refills Clonazepam (Clonazepam) 1 Mg Tab 1 MG PO TID, #90 TAB 0 Refills Cyanocobalamin (Vitamin B-12) 1,000 Mcg Tab 1000 MCG PO DAILY for Nutritional Supplement, #1 BOTTLE 0 Refills Furosemide (Furosemide) 40 Mg Tab 40 MG PO BID, #60 TAB 0 Refills Isosorbide Mononitrate ER (Isosorbide Mononitrate ER) 30 Mg Saji 30 MG PO DAILY for Prevent Chest Pain, #30 TAB 0 Refills Levothyroxine (Levothyroxine) 125 Mcg Tab 125 MCG PO DAILY for Thyroid, #30 TAB 0 Refills Lisinopril (Lisinopril) 2.5 Mg Tab 2.5 MG PO DAILY, #30 TAB 0 Refills Mirtazapine (Remeron) 45 Mg Tab 45 MG PO HS for Depression Control, #30 TAB 0 Refills Montelukast (Montelukast) 10 Mg Tab 10 MG PO HS, #30 TAB 0 Refills Oxycodone-Acetaminophen (Oxycodone-Acetaminophen) 10-325 mg Tab 1 TAB PO Q6H PRN for PAIN, TAB 0 Refills Paroxetine (Paroxetine) 40 Mg Tab 40 MG PO DAILY, #30 TAB 0 Refills Potassium Chloride ER (Potassium Chloride ER) 10 Meq Cap 10 MEQ PO DAILY for Electrolyte Replacement, #30 CAP 0 Refills Tiotropium Inh (Spiriva Handihaler) 18 Mcg Cap 18 MCG INH DAILY for COPD, #30 CAP 0 Refills 1 capsule = 18 mcg Charo Barraza MD Oct 07, 2017 09:32
[2017-10-07] MEDS: FUROSEMIDE 40 MG TAB PO SCH (09:46)
[2017-10-07] MEDS ORDERED: clonazePAM 1 MG TAB PO SCH (14:00)
[2017-10-07] MEDS ORDERED: predniSONE 20 MG TAB PO SCH (21:00)
== END 2017-10-07 10:19 | disposition home or self-care (01) | DRG 871 ==
LOC: PHED 14:05 → PHEDA 16:10 → PHICU 19:13
PROVIDERS: ADMIT Hospitalist; ATTEND Hospitalist
DX: A41.9 Sepsis, unspecified organism (principal); J18.9 Pneumonia, unspecified organism; J96.01 Acute respiratory failure with hypoxia; I11.0 Hypertensive heart disease with heart failure; I50.9 Heart failure, unspecified; Z68.43 Body mass index [BMI] 50.0-59.9, adult; J44.0 Chronic obstructive pulmonary disease with (acute) lower respiratory infection; E66.01 Morbid (severe) obesity due to excess calories; E87.6 Hypokalemia; G47.33 Obstructive sleep apnea (adult) (pediatric); E03.9 Hypothyroidism, unspecified; G89.29 Other chronic pain; M54.9 Dorsalgia, unspecified; T38.0X5A Adverse effect of glucocorticoids and synthetic analogues, initial encounter; R73.9 Hyperglycemia, unspecified; I25.10 Atherosclerotic heart disease of native coronary artery without angina pectoris; F32.9 Major depressive disorder, single episode, unspecified; F41.9 Anxiety disorder, unspecified; Z80.1 Family history of malignant neoplasm of trachea, bronchus and lung; Z82.49 Family history of ischemic heart disease and other diseases of the circulatory system; Z88.1 Allergy status to other antibiotic agents; Z88.6 Allergy status to analgesic agent; Z95.0 Presence of cardiac pacemaker; Z95.2 Presence of prosthetic heart valve
CPT/HCPCS: 36600; 71275; 80048; 80053; 81001; 82805; 83605; 83880; 85025; 85610; 85730; 87040; 87070; 87205; 87804; 94618; 94640; 94664; 96365; 96375; J1644; J1956; J2920; J2930; Q9967